=== PATIENT | male | born 1980 | race Two or more races ===

== ENCOUNTER 2025-05-24 09:37 | Emergency (ER) | payer BC ==
[~2025-05-24] VITALS: Ht 172.7 cm; Wt 93.0 kg
[2025-05-24 09:46] VITALS: TEMP 98.2
[2025-05-24] MEDS: IV NS 0.9% 1,000 ML BAG IV ONE (09:50)
[2025-05-24] MEDS ORDERED: ONDANSETRON HCL/PF 4 MG/2 ML VIAL ONE (09:52)
[2025-05-24] MEDS ORDERED: MORPHINE SULFATE INJ 4 MG/ML DISP.SYRIN ONE (09:53)
[2025-05-24] MEDS: MORPHINE SULFATE INJ 2 MG/ML DISP.SYRIN IV ONE (09:57)
[2025-05-24] MEDS: ONDANSETRON HCL/PF 4 MG/2 ML VIAL IVP ONE (09:57)
[2025-05-24 10:14] VITALS: BP 135/75; O2SAT 99
[2025-05-24 10:14] LABS: PLATELET COUNT (AUTO) 348 K/uL (150-450); RED BLOOD CELL COUNT(AUTO) 4.89 MIL/uL (4.5-6.0); RED CELL DISTRIBUTION WIDTH 13.0 % (11.5-15.0); WHITE BLOOD COUNT (AUTO) 10.3 K/uL (4.3-11.0)
[2025-05-24 10:21] LABS: CALCIUM, SERUM 9.2 mg/dL (8.5-10.1); CREATININE 1.5 mg/dL (0.6-1.3); SODIUM SERUM 139.0 mmol/L (136-145); UREA NITROGEN, BLOOD 21.0 mg/dL (7-18)
[2025-05-24 10:27] LABS: ASPARTATE AMINOTRANSFERASE 15.0 U/L (15-37); TOTAL PROTEIN, SERUM 7.8 g/dL (6.4-8.2)
[2025-05-24 10:30] LABS: INR 1.03 (0.91-1.10)
== END 2025-05-24 10:29 | disposition short-term general hospital (02) ==
LOC: ER 09:48
DX: S31.139A Puncture wound of abdominal wall without foreign body, unspecified quadrant without penetration into peritoneal cavity, initial encounter (principal); S31.33XA Puncture wound without foreign body of scrotum and testes, initial encounter; Z60.2 Problems related to living alone; W34.00XA Accidental discharge from unspecified firearms or gun, initial encounter; Y93.89 Activity, other specified; Y92.89 Other specified places as the place of occurrence of the external cause; Y99.8 Other external cause status
CPT/HCPCS: 99291; 96374; 96361; 96375; 85025; 80048; 80076; 36415; 85730; J2270; J2405; A6253